=== PATIENT | male | born 2000 | race Two or more races ===

== ENCOUNTER 2023-12-17 08:54 | Emergency (ER) | payer BC, SELFPAY ==
[2023-12-17 08:58] VITALS: BP 126/84; PULSE 65; RESP 14; TEMP 37.3; O2SAT 100
[2023-12-17 09:05] VITALS: BP 126/84; PULSE 65; RESP 14; TEMP 37.3; O2SAT 100
[2023-12-17] MEDS: Lidocaine/Epinephri/Tetracaine Topical Gel 3 ML (09:11)
--- NOTE | 2023-12-17 09:27 | W.ED.GENAD ---
Discharge Plan Disposition Patient Disposition: Home Condition: Good Discharge Details Clinical Impression: Cellulitis and abscess of right leg ED Provider: Johnny Forte Home Meds and New Rx's Prescriptions: New clindamycin HCl 150 mg capsule 450 mg PO Q6H 7 Days Qty: 84 0RF Discharge Instructions Instructions: Cellulitis (Skin Infection), Adult ED Care Plan Goals: At this time you have evidence of a small abscess and cellulitis which was drained. Please take the antibiotic as directed. Please take yogurt with live culture probiotic while on the antibiotic to help slightly reduce the risk of potential diarrhea. Please monitor your symptoms closely, keep triple antibiotic ointment on the area where the draining occurred, and if you do notice that it seems to increase slightly in size, please feel free to apply slight mild pressure to that area to encourage continued draining. If you notice any worsening of your symptoms, or any new symptoms such as vomiting, diarrhea, fever, chills, shortness of breath, chest pain, numbness, weakness, or fainting , please return immediately to the emergency department for reevaluation. Please follow up with your primary care provider as soon as possible for reassessment and reevaluation. As always, it was a pleasure participating in your medical care today. HPI General Date/Time Provider Initiated Documentation: 12/17/23 09:27. HPI Narrative: 23-year-old male with no significant past medical history presents today for evaluation of a lesion on the right proximal thigh. Patient states that for the last couple weeks he has had a mild ingrown hair there, however over the last few days it has been getting worse, getting larger, getting more tender. He denies any drainage. He denies fever or chills. No other complaints. He has had these before in the past. Related Data Home Medications ?Medication ?Instructions ?Recorded ?Confirmed clindamycin HCl 150 mg capsule 450 mg (3 x 150 mg) PO Q6H 7 days 12/17/23 #84 caps Previous Rx's ?Medication ?Instructions ?Recorded clindamycin HCl 150 mg capsule 450 mg (3 x 150 mg) PO Q6H 7 days 12/17/23 #84 caps Allergies Allergy/AdvReac Type Severity Reaction Status Date / Time No Known Allergies Allergy Unverified 12/17/23 09:06 General Stated Complaint: Cellulitis TERRIE: 3 Review of Systems All systems reviewed & are unremarkable except as noted in HPI and below Exam Narrative Exam Narrative: 1.Const: Well-nourished, Well-developed, appearing stated age 2.Eyes: PERRL, no conjunctival injection, and symmetrical lids. 3.ENT: Atraumatic external nose and ears. Moist MM. Neck: Symmetric, trachea midline, No thyromegaly. 4.CVS: +S1/S2, No murmurs or gallops. Peripheral pulses 2+ and equal in all extremities. Brisk capillary refill in all extremities. 5.RESP: Unlabored respiratory effort. Clear to auscultation bilaterally. No wheezes rales or rhonchi 6.GI: Soft, Nontender/Nondistended, No hepatosplenomegaly. No guarding or rebound. 7.MSK: Normocephalic/Atraumatic, Extremities w/o deformity or ttp No cyanosis or clubbing, Normal movement of all extremities 8.Skin: On the right anterior thigh patient demonstrates a small fluctuant area of folliculitis, there appears to be white central head clearing. Minimal redness. Mild tenderness is present in that area. No pulsatile component. 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 Sensation grossly intact, no focal neurologic deficits. 10.Psych: (AAO) x3. Appropriate mood and affect Course Vital Signs Vital signs: Vital Signs Temperature 37.3 C 12/17/23 08:58 Pulse 65 12/17/23 08:58 Respiratory Rate 14 12/17/23 08:58 Blood Pressure 126/84 12/17/23 08:58 Pulse Oximetry 100 12/17/23 08:58 Temperature 37.3 C 12/17/23 09:05 Temperature Source Temporal Artery Scan 12/17/23 09:05 Pulse 65 12/17/23 09:05 Respiratory Rate 14 12/17/23 09:05 Respiratory Effort Normal 12/17/23 09:04 Blood Pressure 126/84 12/17/23 09:05 Blood Pressure Position Sitting 12/17/23 09:05 Pulse Oximetry 100 12/17/23 09:05 Oxygen Delivery Method Room Air 12/17/23 09:05 Oxygen Flow Rate 0 12/17/23 09:05 Pain Level 5 12/17/23 09:05 Procedures Abscess I/D Site: Lower Extremity Side (if applicable): Right Local Anesthetic: Lidocaine 1% and With Epi Amount of anesthesia used (mL): 1 Technique: Needle Aspiration Amount of fluid expressed (mL): 3 Irrigation: No Packing used?: None Medical Decision Making 23-year-old male with no significant past medical history presents today for evaluation of a lesion on the right proximal thigh. Patient states that for the last couple weeks he has had a mild ingrown hair there, however over the last few days it has been getting worse, getting larger, getting more tender. He denies any drainage. He denies fever or chills. No other complaints. He has had these before in the past. Exam demonstrates a well-appearing male, On the right anterior thigh patient demonstrates a small fluctuant area of folliculitis, there appears to be white central head clearing. Minimal redness. Mild tenderness is present in that area. No pulsatile component. We will apply let, and the roof or I&D shortly thereafter. Diagnosis is folliculitis with small abscess. The area was anesthetized, the top of the lesion was deroofed and around 2 to 3 mL of purulent drainage was removed. Patient tolerated this well. Cultures have been sent of the drainage. Patient will be started on clindamycin. Recommend continued NSAIDs and clinda for home use. Discussed red flags for which to return. I have extensively reviewed the treatment plan and discharge instructions with the patient. I have addressed all patient concerns at this time. The patient was made aware of what symptoms to monitor for that would warrant a return to the emergency department. Discussed the plan with the patient, they demonstrate verbal understanding and agreement with our assessment and plan at this time. The documentation in this chart was dictated using [employer] dictation software. Please excuse any dictation errors. Quality:SDOR Health Related Social Needs: No Data to Display [facility] All Active Problems (Updated 12/17/23 @ 10:00 by Johnny Forte DO) Cellulitis and abscess of right leg (Acute) Social History Smoking/Tobacco Use Status: Current-Occasional Tobacco Type: e-cigarettes Smoking risk assessment performed?: Yes Drug use: Occasionally Substance use type: marijuana PAWSS Have you Been Recently Intoxicated or Drunk Within the Last 30 days?: No Have you Ever Experienced Previous Episodes of Alcohol Withdrawal?: No Have you ever Experienced Withdrawal Seizures?: No Have you ever Experienced Delirium Tremens(DT)s?: No Have you ever undergone Alcohol Rehabilitation Treatment (i.e, inpt ot outpatient treatment programs)?: No Have you ever Experienced Blackouts?: No Have you ever Combined Alcohol with other Downers within the last 90 days?: No Have you ever Combined Alcohol with any other Substance of Abuse during the last 90 days?: No Result: 0
[2023-12-17] MEDS: Clindamycin 150 MG CAP 450 MG PO (10:06)
[2023-12-17 10:10] VITALS: BP 126/84; PULSE 65; RESP 14; TEMP 37.3; O2SAT 100
== END 2023-12-17 10:10 | disposition home or self-care (01) ==
LOC: ER 10:19
PROVIDERS: Emergency Provider Student in an Organized Health Care Education/Training Program
DX: L03.115 Cellulitis of right lower limb (principal); L02.415 Cutaneous abscess of right lower limb; F17.290 Nicotine dependence, other tobacco product, uncomplicated
CPT/HCPCS: 10060; 99283; 87070; 87205

== ENCOUNTER 2023-12-30 07:01 | Emergency (ER) | payer BC, SELFPAY ==
[2023-12-30 07:05] VITALS: BP 146/80; PULSE 99; RESP 16; TEMP 36.9; O2SAT 97
[2023-12-30] MEDS: Dexamethasone 10 MG/ML VIAL PO (07:14)
--- NOTE | 2023-12-30 07:14 | ED.GENADUL_ITS ---
Discharge Plan Disposition Patient Disposition: Home Condition: Improving Discharge Details Clinical Impression: Allergic reaction Primary Care Provider: Unknown,Unknown ED Provider: Andrae Feliciano Home Meds and New Rx's Prescriptions: New doxycycline hyclate 100 mg capsule 100 mg PO BID 5 Days Qty: 10 0RF No Action clindamycin HCl 150 mg capsule 300 mg PO Q6H Patient Comments: TAKE 3 CAPSULES BY MOUTH EVERY 6 HOURS FOR 7 DAYS Discharge Instructions Instructions: Allergic Reaction ED Additional Instructions: Please discontinue your clindamycin antibiotic. I have sent a prescription for doxycycline to your pharmacy. Please return to the emergency department for any worsening symptoms HPI General Date/Time Provider Initiated Documentation: 12/30/23 07:10 . HPI Narrative: 23-year-old male presents with itching rash over body including arms chest and back, recently started clindamycin after having an incision and drainage done on his right groin for folliculitis and abscess. Denies trouble breathing or speaking denies trouble swallowing denies nausea or vomiting no involvement of face or eyes Related Data Home Medications ?Medication ?Instructions ?Recorded ?Confirmed clindamycin HCl 150 mg capsule 300 mg PO Q6H 12/30/23 12/30/23 doxycycline hyclate 100 mg capsule 100 mg PO BID 5 days #10 caps 12/30/23 Previous Rx's ?Medication ?Instructions ?Recorded doxycycline hyclate 100 mg capsule 100 mg PO BID 5 days #10 caps 12/30/23 Allergies Allergy/AdvReac Type Severity Reaction Status Date / Time house dust Allergy Other (See Verified 12/30/23 07:08 Comment) pollen extracts Allergy Other (See Verified 12/30/23 07:08 Comment) General Stated Complaint: Allergic TERRIE: 3 Exam Narrative Exam Narrative: Alert oriented resting comfortably Moist mucous membranes tongue secretions normal voice no stridor Lungs clear bilaterally no wheezes rales or rhonchi Normal heart sounds no murmurs rubs or gallops Diffuse maculopapular pruritic rash including arms chest back no involvement of oral mucosa or eyes Alert oriented ambulatory without assistance, moving all extremities without deficit Course Vital Signs Vital signs: Vital Signs Temperature 36.9 C 12/30/23 07:05 Pulse 99 H 12/30/23 07:05 Respiratory Rate 16 12/30/23 07:05 Blood Pressure 146/80 H 12/30/23 07:05 Pulse Oximetry 97 12/30/23 07:05 Temperature 36.9 C 12/30/23 07:05 Temperature Source Tympanic 12/30/23 07:05 Pulse 99 H 12/30/23 07:05 Respiratory Rate 16 12/30/23 07:05 Respiratory Effort Normal, Non-Labored 12/30/23 07:10 Blood Pressure 146/80 H 12/30/23 07:05 Blood Pressure Position Sitting 12/30/23 07:05 Pulse Oximetry 97 12/30/23 07:05 Oxygen Delivery Method Room Air 12/30/23 07:05 Oxygen Flow Rate 0 12/30/23 07:05 Pain Level 8 12/30/23 07:05 Medical Decision Making 23-year-old male presents with diffuse maculopapular itching rash over the last 2 days in the setting of starting clindamycin for a folliculitis/abscess of right groin, hemodynamically stable afebrile nontoxic tongue secretions normal voice, no stridor, no wheezing, no GI symptoms, likely allergic reaction to antibiotic. No evidence of anaphylaxis. Will dose dexamethasone and Benadryl. Will tailor antibiotics, right groin abscess/folliculitis well-healing no induration fluctuance or drainage appreciated. 8: 34 resting comfortably no acute distress. Feeling better after steroids. Will transition patient to doxycycline. Counseled patient to discontinue clindamycin. Home care instructions and return precautions given Quality:SDOH Health Related Social Needs: No Data to Display PFSH All Active Problems (Updated 12/30/23 @ 08:35 by Andrae Feliciano MD) Allergic reaction (Acute) Cellulitis and abscess of right leg (Acute) Social History Smoking/Tobacco Use Status: Current-Occasional Tobacco Type: e-cigarettes Smoking risk assessment performed?: Yes Drug use: Occasionally Substance use type: marijuana
[2023-12-30] MEDS: diphenhydrAMINE 25 MG CAP PO (07:15)
== END 2023-12-30 08:46 | disposition home or self-care (01) ==
PROVIDERS: Emergency Provider Emergency Medicine
DX: T78.40XA Allergy, unspecified, initial encounter (principal); L29.9 Pruritus, unspecified
CPT/HCPCS: 99283; 99284; J1100

== ENCOUNTER → 2024-01-17 20:18 | Emergency (ER) | payer BC, SELFPAY ==
[2024-01-17 20:27] VITALS: BP 124/66; PULSE 68; RESP 18; TEMP 36.6; O2SAT 98
--- NOTE | 2024-01-17 20:42 | ED.GENADUL_ITS ---
Discharge Plan Disposition Patient Disposition: Home Condition: Stable Discharge Details Clinical Impression: Fingertip avulsion Primary Care Provider: Unknown,Unknown ED Provider: Johnny Garcia Home Meds and New Rx's Prescriptions: No Action No Known Home Meds Discharge Instructions Instructions: Common finger injuries Additional Instructions: You were seen in the emergency department for your fingertip avulsion of your right pointer finger while cooking dinner. We placed a Surgicel dressing on which is a hemostatic dressing. Please check this dressing on after about 48 hours, you may use simple bandages daily Neosporin as needed, please return to the emergency department for signs of infection like increasing swelling redness, fever, other emergent concerns. HPI General Date/Time Provider Initiated Documentation: 01/17/24 20:37 . HPI Narrative: 23 year-old male presents to ED today by POV/ambulating with a chief complaint of R index fingertip avulsion while cooking dinner, L hand dominant with onset just prior to arrival. Quality described as sliced a small piece of fingerpad off with knife, no radiation to active bleeding, numbness, spurting of blood. Severity is described as mild. Palliating factors include simple bandage with relief of bleeding. Provoking factors include nothing specific. Events leading up to the incident/Associated Symptoms: Patients' Tdap UTD. Patient not anticoagulated. Related Data Home Medications ?Medication ?Instructions ?Recorded ?Confirmed Unknown [No Known Home Meds] 01/17/24 01/17/24 Allergies Allergy/AdvReac Type Severity Reaction Status Date / Time house dust Allergy Other (See Verified 01/17/24 20:27 Comment) pollen extracts Allergy Other (See Verified 01/17/24 20:27 Comment) General Stated Complaint: Laceration TERRIE: 4 Review of Systems All systems reviewed & are unremarkable except as noted in HPI and below Exam Narrative Exam Narrative: GENERAL APPEARANCE: Well-nourished, non-toxic, awake and alert, atraumatic, no acute distress. SKIN: Warm, pink, dry, 0.5 cm fingertip avulsion of the right index finger without active bleeding, brisk capillary refill in the nailbed, no nailbed involvement HEAD: Normocephalic, atraumatic, normal hair distribution for gender/age. EYES: Normal conjunctiva, no exudates on lids/lashes. ENT: Nares patent, no circumoral cyanosis, no facial swelling NECK: Supple, trachea midline, painless cervical ROM. LUNGS/CHEST: Non-labored respirations, normal A/P diameter, symmetrical expansion, no chest wall deformity HEART (CV/PV): Regular rate, R radial pulse 2+, no peripheral edema, no JVD. ABDOMEN: Soft, non-distended, no guarding. MSK: Normal ROM, no swelling/deformity to bilateral UEs or LEs, moving all extremities without weakness, no cyanosis, spine midline without tenderness, normal curvature. NEURO: Mental Status AAOx4 - alert to person, place, time, events No facial droop, no forehead involvement. Motor: No focal weakness - strength 5/5 in bilateral UEs and LEs, proximal and distal, symmetric. Sensory: sensation intact to light touch globally. Gait normal: patient ambulated without ataxia into ED room. PSYCH: euthymic, cooperative, pleasant, appropriate speech Course Vital Signs Vital signs: Vital Signs Temperature 36.6 C 01/17/24 20:27 Pulse 68 01/17/24 20:27 Respiratory Rate 18 01/17/24 20:27 Blood Pressure 124/66 01/17/24 20:27 Pulse Oximetry 98 01/17/24 20:27 Temperature 36.6 C 01/17/24 20:27 Pulse 68 01/17/24 20:27 Respiratory Rate 18 01/17/24 20:27 Respiratory Effort Normal 01/17/24 20:29 Blood Pressure 124/66 01/17/24 20:27 Pulse Oximetry 98 01/17/24 20:27 Pain Level 6 01/17/24 20:27 Medical Decision Making This dictation utilizes [id number] dictation software and may contain unedited grammatical errors. 23 year-old male presents to ED today by POV/ambulating with a chief complaint of R index fingertip avulsion while cooking dinner, L hand dominant with onset just prior to arrival. Quality described as sliced a small piece of fingerpad off with knife, no radiation to active bleeding, numbness, spurting of blood. Severity is described as mild. Palliating factors include simple bandage with relief of bleeding. Provoking factors include nothing specific. Events leading up to the incident/Associated Symptoms: Patients' Tdap UTD. Patients' medical history: noncontributory. Family and social history: noncontributory. Pertinent exam findings / vital signs include 0.5 cm fingertip avulsion of the right index finger without nailbed involvement, no active bleeding, neurovascularly intact in the right hand diffusely. Differential / pathologies of concern include fingertip avulsion. Diagnostic studies of: -None. Interventions of: -Simple bandage with 1 piece of Surgicel applied by RN. ED Course/Assessment/Plan: 23-year-old male seen for right index finger fingertip avulsion while cooking dinner, Tdap is up-to-date, there is no active bleeding, wound is clean, was dressed with Surgicel dressing, strict return criteria for signs of infection. Findings not consistent with active bleeding, neurovascular compromise, nailbed involvement. Disposition of fingertip avulsion. Patient verbalized understanding of the plan and return to ED criteria and engaged in shared decision making. Medical Records Medical records reviewed: Yes I reviewed the patient's medical records. Quality:[facility] Health Related Social Needs: No Data to Display PFSH All Active Problems (Updated 01/17/24 @ 20:59 by EMBER Simpson) Fingertip avulsion (Acute) Allergic reaction (Acute) Social History Smoking/Tobacco Use Status: Current-Occasional Tobacco Type: e-cigarettes Smoking risk assessment performed?: Yes Alcohol Intake: current Alcohol Intake frequency: holidays/special occasions only Drug use: Occasionally Substance use type: marijuana Housing: apartment Do you feel safe at home: Yes Do you feel safe in your relationship?: Yes
[2024-01-17] MEDS: Cellulose,Oxidized 2X3 PKT 1 EACH MC (20:59)
== END | disposition home or self-care (01) ==
LOC: ER 20:59 → RED 21:10
PROVIDERS: Emergency Provider Physician Assistant
DX: S61.200A Unspecified open wound of right index finger without damage to nail, initial encounter (principal); W26.0XXA Contact with knife, initial encounter
CPT/HCPCS: 99282; 99283

== ENCOUNTER 2024-01-25 14:40 | Emergency (ER) | payer BC, SELFPAY ==
[2024-01-25 14:43] VITALS: BP 136/94; PULSE 98; RESP 15; TEMP 36.8; O2SAT 96
--- NOTE | 2024-01-25 15:01 | ED.GENADUL_ITS ---
Discharge Plan Disposition Patient Disposition: Home Condition: Stable Discharge Details Chief Complaint: GenMedical Clinical Impression: Pruritus of groin in male Primary Care Provider: Unknown,Unknown ED Provider: Yousif Agudelo Home Meds and New Rx's Prescriptions: No Action No Known Home Meds Discharge Instructions Additional Instructions: I would recommend using [id number] topical antifungal such as clotrimazole Follow-up with your primary care provider if not improving in 1 to 2 weeks, he can also see [facility] for [facility]D screening If you feel more ill or feel you are suffering from emergent medical process return to the emergency department for reevaluation HPI General Mode of arrival: ambulatory . Date/Time Provider Initiated Documentation: 01/25/24 14:40 . Limitations to Documentation: no limitations . Information obtained by: patient . History of Present Illness 23 year old M presents to the emergency department with the chief complaint of groin itching, described as mild, Patient started experiencing this day(s) (2) and it has been constant. No relieving factors improve symptom(s), No exacerbating factors reported . Patient notes no other symptoms.. Patient did receive the following treatments prior to arrival, none Related Data Home Medications ?Medication ?Instructions ?Recorded ?Confirmed Unknown [No Known Home Meds] 01/17/24 01/25/24 Allergies Allergy/AdvReac Type Severity Reaction Status Date / Time house dust Allergy Other (See Verified 01/25/24 14:46 Comment) pollen extracts Allergy Other (See Verified 01/25/24 14:46 Comment) General Stated Complaint: GenMedical TERRIE: 4 Review of Systems All systems reviewed & are unremarkable except as noted in HPI and below Constitutional Constitutional: Denies chills, Denies fever(s) and Denies weakness Cardiovascular Cardiovascular: Denies chest pain and Denies dyspnea Respiratory Respiratory: Denies cough and Denies dyspnea Gastrointestinal Gastrointestinal: Denies abdominal pain, Denies nausea and Denies vomiting Musculoskeletal Musculoskeletal: Denies joint swelling Integumentary/Breasts Skin/Breast: Reports rash Neurologic Neurologic: Denies weakness Exam Const General: no acute distress Orientation: alert HENMT Head: normal to inspection Ears: external ears normal General nose exam: external nose normal Mouth: moist mucous membranes Eyes General: appearance normal, both eyes and all related structures Neck Neck: normal visual inspection Resp Effort & Inspection: normal respiratory effort and able to speak in complete sentences Cardio Rate: regular rate Skin General skin exam: no crusts and no petechiae Neuro General: patient alert and patient oriented x3 Extrem General: normal to inspection Psych Mental Status: mental status grossly normal Course Vital Signs Vital signs: Vital Signs Temperature 36.8 C 01/25/24 14:43 Pulse 98 H 01/25/24 14:43 Respiratory Rate 15 01/25/24 14:43 Blood Pressure 136/94 H 01/25/24 14:43 Pulse Oximetry 96 01/25/24 14:43 Temperature 36.8 C 01/25/24 14:43 Pulse 98 H 01/25/24 14:43 Respiratory Rate 15 01/25/24 14:43 Respiratory Effort Normal 01/25/24 14:54 Blood Pressure 136/94 H 01/25/24 14:43 Pulse Oximetry 96 01/25/24 14:43 Oxygen Delivery Method Room Air 01/25/24 14:43 Oxygen Flow Rate 0 01/25/24 14:43 Pain Level 0 01/25/24 14:43 Medical Decision Making 23-year-old male who denies any significant past medical history other than eczema comes in with several days of itching bilateral gluteal areas. He denies any fevers, body aches, dysuria or penile discharge. He is alert and appears on exam. Has mild erythema in both inguinal folds, no warmth or tenderness. Seems most consistent with tinea cruris will start clotrimazole topical. He will follow-up with his PCP and also discussed follow-up with [facility] for [facility] this week. Differential Diagnosis Differential Diagnosis: tinea cruris, eczema Quality:SDOH Health Related Social Needs: No Data to Display PFSH All Active Problems (Updated 01/25/24 @ 15:06 by Yousif Agudelo MD) Pruritus of groin in male (Acute) Fingertip avulsion (Acute) Allergic reaction (Acute) Social History Smoking/Tobacco Use Status: Current-Occasional Tobacco Type: e-cigarettes Smoking risk assessment performed?: Yes Alcohol Intake: current Alcohol Intake frequency: holidays/special occasions only Drug use: Occasionally Substance use type: marijuana Housing: house Do you feel safe at home: Yes Do you feel safe in your relationship?: Yes
[2024-01-25 15:22] VITALS: BP 136/94; PULSE 70; RESP 14; RESP 15; TEMP 36.8; O2SAT 96
[2024-01-25 15:26] VITALS: BP 136/94; PULSE 70; RESP 14; TEMP 36.8; O2SAT 96
== END 2024-01-25 15:26 | disposition home or self-care (01) ==
PROVIDERS: Emergency Provider Emergency Medicine
DX: L29.8 Other pruritus (principal)
CPT/HCPCS: 99282